=== PATIENT | female | born 1990 | race African-American/Black ===

== ENCOUNTER 2018-02-23 20:07 | Observation (INO) ==
[2018-02-23 20:46] VITALS: O2SAT 100
--- NOTE | 2018-02-23 21:04 | ED ---
HPI General Chief Complaint: Chest Pain Stated Complaint: Sob Time Seen by Provider: 02/23/18 20:52 Source: patient History of Present Illness HPI narrative: The patient is a 27 year old female who presents to the [facility] emergency department with a history of intermittent chest pain that began in January. She has a lump that is painful in the left breast that she noticed in January. She has never been evaluated for this previously. The pain is sharp and made worse with lying on it, pressing on it, or taking a deep breath. She has a history of anemia with chronic shortness breath, however her shortness of breath has been worse over the last 2 weeks. She had a fever on Thursday a week ago. Her tmax was 103. She has had a dry cough that began 3 weeks ago. She has had a DVT when she was at 20 years of age. She denies any congestion, neck pain, abdominal pain, diarrhea, urinary symptoms, or neurologic symptoms. FH: DVT in materal grandmother. LMP: 01/27/2018. Related Data Home Medications Medication Instructions Recorded Confirmed cyanocobalamin (vitamin B-12) 2,500 mcg PO DAILY 02/23/18 02/23/18 [Vitamin B-12] iron 150 mg PO DAILY 02/23/18 02/23/18 Allergies Allergy/AdvReac Type Severity Reaction Status Date / Time diphenhydramine Allergy Hives Verified 02/23/18 20:44 [From Latisha] Review of Systems ROS: all other systems reviewed are negative PMFSH Medical History Medical History DVT (deep vein thrombosis) in (Acute) Patient denies medical problems (Acute) Iron deficiency anemia (Acute) Pernicious anemia (Acute) Surgical History Surgical History No history of previous surgery (Acute) Social History Social History Substance History: No History of Abuse Second Hand Smoke Exposure: No Smoking Status: Never smoker How Often Do You Have a Drink Containing Alcohol: Never Recent Travel in [facility] within the Last 8 Weeks: No Recent Out of Country Travel within the Last 8 Weeks: No Exam Const General: cooperative, no acute distress and well developed Nutritional Appearance: well nourished Orientation: alert, awake and oriented x3 HENMT Head: normocephalic and atraumatic Nose: no nasal discharge and no epistaxis Mouth: moist mucous membranes Throat: posterior oropharynx normal and uvula midline Eyes Sclera: normal sclerae Pupils: PERRL Neck Neck: no meningeal signs, trachea midline and no JVD Chest Chest: normal inspection of the chest and tenderness (On palpation of the left breast, the patient is exquisitely tender. There is no erythema. There is no nipple discharge. The patient has no focal masses. The patient's right breast is unremarkable. No skin changes overlying the left breast.) Breast inspection: normal inspection of the axillae Breast palpation: no axillary lymphadenopathy Resp Effort & Inspection: no use of accessory muscles Auscultation: clear to auscultation bilaterally Cardio Rate: regular rate Rhythm: regular rhythm Heart Sounds: no gallops, no murmurs and no rubs GI Inspection: non-distended Palpation: soft, no hepatosplenomegaly and nontender Skin General: dry skin (warm) Neuro General: alert and awake Cranial Nerves: other Speech: speech normal Motor: no movement abnormalities noted Extrem General: normal to inspection, no clubbing, no cyanosis and no edema Psych Mood: congruent mood Affect: normal affect Judgment: judgment good Course Initial Documented Vital Signs Temperature 98.9 F 02/23/18 20:44 Pulse Rate 104 H 02/23/18 20:44 Respiratory Rate 16 02/23/18 20:44 Blood Pressure 151/74 H 02/23/18 20:44 Pulse Oximetry 100 02/23/18 20:44 Last Documented Vital Signs Temperature 98.4 F 02/24/18 04:00 Pulse Rate 76 02/24/18 04:00 Respiratory Rate 18 02/24/18 04:00 Blood Pressure 97/62 L 02/24/18 04:00 Pulse Oximetry 100 02/24/18 04:00 Clinical Decision Support Wells' Criteria Questions Clinical Signs and Symptoms of DVT: No PE is primary diagnosis or equally likely: Yes Heart Rate greater than 100: Yes Immobilized at least 3 days or Surgery in previous 4 weeks: No Previous, objectively diagnosed PE or DVT: Yes Hemoptysis: No Malignancy with treatment within 6 months or palliative: No Wells' Criteria Score Wells' Criteria Score: 6.0 Medical Decision Making MDM Narrative Medical decision making narrative: During the course of the patient's emergency department visit, the patient's history, examination, and differential diagnosis were reviewed with the patient. The patient was placed on a awake overnight monitor with oximetry and frequent blood pressure monitoring. The patient had IV access obtained and blood work sent for analysis. A diagnostic evaluation was started regarding the patient's chest pain. A bedside test was negative. Diagnostic studies revealed a CBC that is within normal limits, PT PTT within normal limits, d-dimer elevated at 1.94, chemistry is remarkable for potassium of 3.4, creatinine 1.07, GFR 74, cardiac enzymes within normal limits, BMP within normal limits, C-reactive protein less than 0.29, lipase within normal limits. The patient had a chest x-ray done that showed no acute abnormality, CTA to rule out PE showed no evidence of PE. Given the patient's reports of chest pain and shortness of breath with exertion. The patient will be, the patient will be admitted to the chest pain center for rule out serial cardiac enzyme protocol followed by consideration of stress testing. The patient's results were discussed with the patient, including the plan of care. I explained that further testing and/ or monitoring is indicated based on the patient's history, examination, and/ or laboratory findings. Therefore, I recommended admission for additional evaluation. The patient expressed understanding and was agreeable with this plan. The patient was admitted to the hospital in stable condition and sent to a bed under the care of the [facility]. Medical Screen Exam Complete: Yes Emergency Medical Condition: Yes Differential Diagnosis Differential Diagnosis: Pulmonary embolism, versus acute coronary syndrome, versus anxiety disorder, versus acid reflux, versus pneumonia, versus pleurisy, versus chest wall pain Medical Records Medical records reviewed: Yes I reviewed the patient's medical records. Lab Data Lab results reviewed: Yes I reviewed the patient's lab results. Result diagrams: 02/23/18 21:15 02/23/18 21:15 POC Results POC Urine Results Negative Lab Results 02/23/18 02/23/18 02/23/18 Range/Units 21:15 21:15 21:15 WBC 10.0 (4.0-11.0) th/mm3 RBC 4.13 (4.00-5.30) mil/mm3 Hgb 12.4 (11.6-15.3) gm/dL Hct 37.3 (35.0-46.0) % MCV 90.5 (80.0-100.0) fL MCH 29.9 (27.0-34.0) pg MCHC 33.1 (32.0-36.0) % RDW 14.9 (11.6-17.2) % Plt Count 238 (150-450) th/mm3 MPV 9.5 (7.0-11.0) fL Neut % (Auto) 68.8 (16.0-70.0) % Lymph % (Auto) 21.2 (9.0-44.0) % [place] % (Auto) 8.0 (0.0-8.0) % Eos % (Auto) 1.4 (0.0-4.0) % Baso % (Auto) 0.6 (0.0-2.0) % Neut # (Auto) 6.9 (1.8-7.7) th/mm3 Lymph # (Auto) 2.1 (1.0-4.8) th/mm3 [place] # (Auto) 0.8 (0.0-0.9) th/mm3 Eos # (Auto) 0.1 (0.0-0.4) th/mm3 Baso # (Auto) 0.1 (0.0-0.2) th/mm3 WBC Differential . Differential Comment Auto diff final PT 10.6 (9.8-11.6) sec INR 1.0 Ratio APTT 29.5 (24.3-30.1) sec D-Dimer Quant (PE/DVT) 1.94 H (0.00-0.50) mg/L FEU Sodium 137 (136-145) meq/L Potassium 3.4 L (3.5-5.1) meq/L Chloride 105 (98-107) meq/L Carbon Dioxide 22.0 (21.0-32.0) meq/L Anion Gap 10 (5-15) meq/L BUN 8 (7-18) mg/dL Creatinine 1.07 H (0.50-1.00) mg/dL Estimated GFR 74 L (>89) mL/min Random Glucose 79 (74-106) mg/dL Lactic Acid (0.4-2.0) mmol/L Calcium 9.0 (8.5-10.1) mg/dL Magnesium 2.1 (1.5-2.5) mg/dL Total Bilirubin 0.7 (0.2-1.0) mg/dL AST 16 (15-37) U/L ALT 21 (10-53) U/L Alkaline Phosphatase 70 (45-117) U/L Total Creatine Kinase 109 (26-192) U/L CK-MB (CK-2) Less than 1.0 (0.5-3.6) ng/mL Troponin I Less than 0.02 L (0.02-0.05) ng/mL C-Reactive Protein (0.00-0.30) mg/dL B-Natriuretic Peptide (0-100) pg/mL Total Protein 8.6 H (6.4-8.2) g/dL Albumin 4.1 (3.4-5.0) g/dL Lipase 192 (73-393) U/L 02/23/18 02/23/18 02/23/18 Range/Units 21:15 21:15 21:15 WBC (4.0-11.0) th/mm3 RBC (4.00-5.30) mil/mm3 Hgb (11.6-15.3) gm/dL Hct (35.0-46.0) % MCV (80.0-100.0) fL MCH (27.0-34.0) pg MCHC (32.0-36.0) % RDW (11.6-17.2) % Plt Count (150-450) th/mm3 MPV (7.0-11.0) fL Neut % (Auto) (16.0-70.0) % Lymph % (Auto) (9.0-44.0) % [place] % (Auto) (0.0-8.0) % Eos % (Auto) (0.0-4.0) % Baso % (Auto) (0.0-2.0) % Neut # (Auto) (1.8-7.7) th/mm3 Lymph # (Auto) (1.0-4.8) th/mm3 [place] # (Auto) (0.0-0.9) th/mm3 Eos # (Auto) (0.0-0.4) th/mm3 Baso # (Auto) (0.0-0.2) th/mm3 WBC Differential Differential Comment PT (9.8-11.6) sec INR Ratio APTT (24.3-30.1) sec D-Dimer Quant (PE/DVT) (0.00-0.50) mg/L FEU Sodium (136-145) meq/L Potassium (3.5-5.1) meq/L Chloride (98-107) meq/L Carbon Dioxide (21.0-32.0) meq/L Anion Gap (5-15) meq/L BUN (7-18) mg/dL Creatinine (0.50-1.00) mg/dL Estimated GFR (>89) mL/min Random Glucose (74-106) mg/dL Lactic Acid 1.4 (0.4-2.0) mmol/L Calcium (8.5-10.1) mg/dL Magnesium (1.5-2.5) mg/dL Total Bilirubin (0.2-1.0) mg/dL AST (15-37) U/L ALT (10-53) U/L Alkaline Phosphatase (45-117) U/L Total Creatine Kinase (26-192) U/L CK-MB (CK-2) (0.5-3.6) ng/mL Troponin I (0.02-0.05) ng/mL C-Reactive Protein Less than 0.29 (0.00-0.30) mg/dL B-Natriuretic Peptide 3 (0-100) pg/mL Total Protein (6.4-8.2) g/dL Albumin (3.4-5.0) g/dL Lipase (73-393) U/L 02/24/18 02/24/18 Range/Units 00:21 03:38 WBC (4.0-11.0) th/mm3 RBC (4.00-5.30) mil/mm3 Hgb (11.6-15.3) gm/dL Hct (35.0-46.0) % MCV (80.0-100.0) fL MCH (27.0-34.0) pg MCHC (32.0-36.0) % RDW (11.6-17.2) % Plt Count (150-450) th/mm3 MPV (7.0-11.0) fL Neut % (Auto) (16.0-70.0) % Lymph % (Auto) (9.0-44.0) % [place] % (Auto) (0.0-8.0) % Eos % (Auto) (0.0-4.0) % Baso % (Auto) (0.0-2.0) % Neut # (Auto) (1.8-7.7) th/mm3 Lymph # (Auto) (1.0-4.8) th/mm3 [place] # (Auto) (0.0-0.9) th/mm3 Eos # (Auto) (0.0-0.4) th/mm3 Baso # (Auto) (0.0-0.2) th/mm3 WBC Differential Differential Comment PT (9.8-11.6) sec INR Ratio APTT (24.3-30.1) sec D-Dimer Quant (PE/DVT) (0.00-0.50) mg/L FEU Sodium (136-145) meq/L Potassium (3.5-5.1) meq/L Chloride (98-107) meq/L Carbon Dioxide (21.0-32.0) meq/L Anion Gap (5-15) meq/L BUN (7-18) mg/dL Creatinine (0.50-1.00) mg/dL Estimated GFR (>89) mL/min Random Glucose (74-106) mg/dL Lactic Acid (0.4-2.0) mmol/L Calcium (8.5-10.1) mg/dL Magnesium (1.5-2.5) mg/dL Total Bilirubin (0.2-1.0) mg/dL AST (15-37) U/L ALT (10-53) U/L Alkaline Phosphatase (45-117) U/L Total Creatine Kinase 94 97 (26-192) U/L CK-MB (CK-2) (0.5-3.6) ng/mL Troponin I Less than 0.02 L Less than 0.02 L (0.02-0.05) ng/mL C-Reactive Protein (0.00-0.30) mg/dL B-Natriuretic Peptide (0-100) pg/mL Total Protein (6.4-8.2) g/dL Albumin (3.4-5.0) g/dL Lipase (73-393) U/L Imaging Data Radiologist's impression: Chest X-Ray 02/23/18 21:05 CONCLUSION: No active disease. Chest CTA 02/23/18 21:15 CONCLUSION: 1. Negative for pulmonary embolus. Lungs are clear. ECG Data Attestation: I personally reviewed and interpreted this ECG as follows: Interpretation: The patient had an EKG done on arrival that shows a sinus rhythm heart rate of 89, QRS duration is 88 ms, QTC [address] segment elevation. T waves are inverted in V1. Discharge Plan Discharge Disposition Patient Disposition: 30 Still Patient Discharge Details Diagnosis: Chest pain, rule out acute myocardial infarction Physicians Team ED Provider: Sylvia Rogers Primary Care Provider: Primary Care Meera Christianson Attending Provider: Saranya Harrington Discharge Interventions Interventions: ED Discharge Assessment Last Done: 02/24/18 00:44 Vital Signs Last Done: 02/23/18 20:45 Status ED Status: Left Department Discharge Information Discharge Date/Time: 02/24/18 00:46
[2018-02-23 21:38] LABS: Baso # (Auto) 0.1 th/mm3 (0.0-0.2); Baso % (Auto) 0.6 % (0.0-2.0); Eos # (Auto) 0.1 th/mm3 (0.0-0.4); Eos % (Auto) 1.4 % (0.0-4.0); Hematocrit 37.3 % (35.0-46.0); Hemoglobin 12.4 gm/dL (11.6-15.3); Lymph # (Auto) 2.1 th/mm3 (1.0-4.8); Lymph % (Auto) 21.2 % (9.0-44.0); Mean Corpuscular HGB Conc 33.1 % (32.0-36.0); Mean Corpuscular Hemoglobin 29.9 pg (27.0-34.0); Mean Corpuscular Volume 90.5 fL (80.0-100.0); Mean Platelet Volume 9.5 fL (7.0-11.0); Mono # (Auto) 0.8 th/mm3 (0.0-0.9); Neut # (Auto) 6.9 th/mm3 (1.8-7.7); Neut % (Auto) 68.8 % (16.0-70.0); Platelet Count 238 th/mm3 (150-450); Red Blood Count 4.13 mil/mm3 (4.00-5.30); Red Cell Distribution Width 14.9 % (11.6-17.2)
[2018-02-23 21:52] LABS: D-Dimer 1.94 mg/L FEU (0.00-0.50)
[2018-02-23 21:53] LABS: Activated Partial Thrombo Time 29.5 sec (24.3-30.1); Prothrombin Time 10.6 sec (9.8-11.6)
[2018-02-23 22:05] LABS: Alanine Aminotransferase 21 U/L (10-53); Albumin 4.1 g/dL (3.4-5.0); Anion Gap 10 meq/L (5-15); Aspartate Aminotransferase 16 U/L (15-37); Blood Urea Nitrogen 8 mg/dL (7-18); Chloride 105 meq/L (98-107); Glomerular Filtration Rate 74 mL/min (>89); Glucose,Random 79 mg/dL (74-106); Lipase 192 U/L (73-393); Magnesium 2.1 mg/dL (1.5-2.5); Potassium 3.4 meq/L (3.5-5.1); Sodium 137 meq/L (136-145)
--- NOTE | 2018-02-23 22:06 | XR ---
EXAM DATE: 02/23/2018 10:00 PM EDT AGE/SEX: 27 years / Female INDICATIONS: Patient states that she has shortness of breath for 2 weeks which is increasing. CLINICAL DATA: This is the patient's initial encounter. Patient reports that signs and symptoms have been present for 2 weeks and indicates a pain score of 2/10. MEDICAL/SURGICAL HISTORY: None. None. COMPARISON: No prior exams available for comparison. FINDINGS: A single AP view of the chest demonstrates the lungs to be symmetrically aerated without evidence of mass, infiltrate or effusion. The cardiomediastinal contours are unremarkable. Osseous structures a re intact. CONCLUSION: No active disease. Electronically signed by: Steve Meyer MD 02/23/2018 10:05 PM EDT
[2018-02-23 22:12] LABS: Alkaline Phosphatase 70 U/L (45-117); Creatine Kinase 109 U/L (26-192); Total Protein 8.6 g/dL (6.4-8.2)
--- NOTE | 2018-02-23 22:35 | CT ---
EXAM DATE: 02/23/2018 10:31 PM EDT AGE/SEX: 27 years / Female INDICATIONS: Shortness of breath. Chest pain. CLINICAL DATA: This is the patient's initial encounter. Patient reports that signs and symptoms have been present for 1 day and indicates a pain score of 3/10. MEDICAL/SURGICAL HISTORY: None. None. RADIATION DOSE: 6.66 CTDI (mGy) COMPARISON: No prior exams available for comparison. TECHNIQUE: Volumetric scanning was performed using a multi-row detector CT scanner during bolus infu katherine of 75 ml Omnipaque 350 (iohexol) nonionic water-soluble contrast as a single exam dose. The avelina a was post processed with a variety of visualization algorithms including full volume maximum intensi ty projection and sliding thin slab reformation. Using automated exposure control and adjustment of the mA and/or kV according to patient size, radiation dose was kept as low as reasonably achievable t o obtain optimal diagnostic quality images. DICOM format image data is available electronically for review and comparison. FINDINGS: No filling defects to suggest pulmonary embolic disease. Lungs are clear. No pleural or pericardial e ffusion. No adenopathy. No acute bony abnormalities. CONCLUSION: 1. Negative for pulmonary embolus. Lungs are clear. Electronically signed by: Steve Meyer MD 02/23/2018 10:34 PM EDT
[2018-02-24] MEDS ORDERED: Acetaminophen 500 MG Tablet PO PRN (00:05)
[2018-02-24 01:00] LABS: Creatine Kinase 94 U/L (26-192)
[2018-02-24 04:03] VITALS: RESP 18
[2018-02-24 04:30] LABS: Creatine Kinase 97 U/L (26-192)
[2018-02-24 08:31] VITALS: BP 110/67; TEMP 98.8
--- NOTE | 2018-02-24 08:31 | P.HPCA ---
History of Present Illness Primary Care Physician: No Primary Care Physician Chief Complaint: Chest pain History of Present Illness: 27 year old female with history of anemia presents to ER for further evaluation of nonexertional chest tightness. Onset 2 weeks. Characterizes chest tightness with associated symptoms of dyspnea and intermittent sharp pains during inhalation. Yesterday's episode more severe and lingered most of the day. No recent illness, fever, or cough. Reports fever Thursday of 103, relieve with taking a cool shower. Recently moved to [facility] and does not have a local PCP. No history of asthma. Reports having 2 different type of anemia, uncertain of which types. No diabetes, hypertension, or hyperlipidemia. Past cardiac testing None Social history Lifelong non-smoker. Denies any alcohol or recreational drug use. Works in IT. Endorses an active lifestyle running and/or walking daily Family history Noncontributory for early onset cardiovascular disease. - Diagnosis (1) Chest pain, atypical Review of Systems All other systems reviewed negative except as stated in HPI PMFSH - History History Provided By: Patient - Medical History Medical History: Medical History (Last Reviewed 02/24/18 @ 10:05 by LAYNE Martin) DVT (deep vein thrombosis) in Iron deficiency anemia Pernicious anemia - Surgical History Surgical History: Surgical History (Last Reviewed 02/24/18 @ 10:05 by LAYNE Martin) No history of previous surgery - Social History I have reviewed the patient's Social History: Yes - Tobacco History Second Hand Smoke Exposure: No Smoking Status: Never smoker - Alcohol History How Often Do You Have a Drink Containing Alcohol: Never - Substance Use History Substance History: No History of Abuse - Travel History Recent Travel in the [facility] Within the Last 8 Weeks: No Recent Travel Out of the Country Within the Last 8 Weeks: No - Immunization History Tetanus Immunization: >5 Years Hx Influenza Vaccine This Season: No Medications and Allergies Active Medications: Active Medications Acetaminophen (Tylenol) 500 mg PO Q4H PRN PRN Reason: HEADACHE Sodium Chloride (Ns Flush) 2 ml IV.FLUSH UNSCH PRN PRN Reason: FLUSH AFTER USING IV ACCESS Sodium Chloride (Ns Flush) 2 ml IV.FLUSH BID INDIGO Sodium Chloride (Ns Flush) 2 ml IV.FLUSH PRN PRN PRN Reason: FLUSH AFTER USING IV ACCESS Allergies Allergy/AdvReac Type Severity Reaction Status Date / Time diphenhydramine Allergy Hives Verified 02/23/18 20:44 [facility] Home Medications Medication Instructions Recorded Confirmed Type cyanocobalamin (vitamin B-12) 2,500 mcg PO DAILY 02/23/18 02/23/18 History [Vitamin B-12] iron 150 mg PO DAILY 02/23/18 02/23/18 History Exam Vital signs: Vital Signs 02/23/18 20:44 02/23/18 20:45 02/23/18 21:29 Temperature 98.9 F 98.9 F Pulse Rate 104 H 83 89 Respiratory Rate 16 16 19 Blood Pressure 151/74 H 112/59 L 137/67 Pulse Oximetry 100 100 100 02/23/18 22:40 02/24/18 00:17 02/24/18 00:48 Temperature 98.8 F Pulse Rate 89 75 76 Respiratory Rate 16 Blood Pressure 123/78 Pulse Oximetry 100 02/24/18 04:00 02/24/18 08:27 Temperature 98.4 F 98.8 F Pulse Rate 76 73 Respiratory Rate 18 18 Blood Pressure 97/62 L 110/67 Pulse Oximetry 100 100 Intake & Output 02/23/18 02/24/18 02/24/18 18:59 06:59 18:59 Weight 65.77 kg Other: Weight On Admission 65.771 kg Narrative: GENERAL: Alert WN, WD, NAD, pleasant, -Greek female HEAD: NC, AT EYES: Sclera clear, conjunctiva without injection, pupils equal and round ENT: Mucous membranes pink and moist NECK: Supple, no masses, trachea midline, thyroid palpable, no nodules CV: RRR, without murmur or rub, S1-S2. RESP: Clear lungs throughout bilateral, no crackles, wheeze, rhonchi, symmetrical chest rise, nonlabored, able to speak in full sentences ABD: Soft, NT, ND, no masses, positive bowel tones EXT: Pulses +2x4, no dependent edema MS: Normal tone x4 extremities, nontender, no obvious deformities, full range of motion NEURO: CN II through CN XII grossly intact, motor strength 5/5, gait WNL PSYCH: A+O x3, pleasant affect, appropriate speech, mood, insight and judgment SKIN: Normal turgor, normal texture, no lesions, no rashes, even hair distribution Results 02/23/18 21:15 02/23/18 21:15 Cardiac Enzymes 02/23/18 02/23/18 02/24/18 Range/Units 21:15 21:15 00:21 AST 16 (15-37) U/L CK-MB (CK-2) Less than 1.0 (0.5-3.6) ng/mL Troponin I Less than 0.02 L Less than 0.02 L (0.02-0.05) ng/mL B-Natriuretic Peptide 3 (0-100) pg/mL 02/24/18 Range/Units 03:38 AST (15-37) U/L CK-MB (CK-2) (0.5-3.6) ng/mL Troponin I Less than 0.02 L (0.02-0.05) ng/mL B-Natriuretic Peptide (0-100) pg/mL Coagulation 02/23/18 02/23/18 Range/Units 21:15 21:15 PT 10.6 (9.8-11.6) sec APTT 29.5 (24.3-30.1) sec B-Natriuretic Peptide 3 (0-100) pg/mL CBC 02/23/18 Range/Units 21:15 WBC 10.0 (4.0-11.0) th/mm3 RBC 4.13 (4.00-5.30) mil/mm3 Hgb 12.4 (11.6-15.3) gm/dL Hct 37.3 (35.0-46.0) % Plt Count 238 (150-450) th/mm3 Neut # (Auto) 6.9 (1.8-7.7) th/mm3 Lymph # (Auto) 2.1 (1.0-4.8) th/mm3 [place] # (Auto) 0.8 (0.0-0.9) th/mm3 Eos # (Auto) 0.1 (0.0-0.4) th/mm3 Baso # (Auto) 0.1 (0.0-0.2) th/mm3 Comprehensive Metabolic Panel 02/23/18 Range/Units 21:15 Sodium 137 (136-145) meq/L Potassium 3.4 L (3.5-5.1) meq/L Chloride 105 (98-107) meq/L Carbon Dioxide 22.0 (21.0-32.0) meq/L BUN 8 (7-18) mg/dL Creatinine 1.07 H (0.50-1.00) mg/dL Calcium 9.0 (8.5-10.1) mg/dL AST 16 (15-37) U/L ALT 21 (10-53) U/L Alkaline Phosphatase 70 (45-117) U/L Total Protein 8.6 H (6.4-8.2) g/dL Albumin 4.1 (3.4-5.0) g/dL Intake and Output 02/23/18 02/24/18 02/24/18 22:59 06:59 14:59 Other: Weight 65.771 kg 65.77 kg Weight On Admission 65.771 kg EKG interpretations - EKG EKG results cardiology: sinus rhythm, normal axis, normal QRS, normal ST/T Caprini VTE Risk Assessment Caprini VTE Risk Assessment: No/Low Risk (score <= 1) Caprini Risk Assessment Model: Point Value = 1 Point Value = 2 Point Value = 3 Point Value = 5 Age 41-60 Minor surgery BMI > 25 kg/m2 Swollen legs Varicose veins or History of unexplained or recurrent spontaneous Oral contraceptives or hormone replacement Sepsis (< 1 month) Serious lung disease, including pneumonia (< 1 month) Abnormal pulmonary function Acute myocardial infarction Congestive heart failure (< 1 month) History of inflammatory bowel disease Medical patient at bed rest Age 61-74 Arthroscopic surgery Major open surgery (> 45 min) Laparoscopic surgery (> 45 min) Malignancy Confined to bed (> 72 hours) Immobilizing plaster cast Central venous access Age >= 75 History of VTE Family history of VTE Factor V Leiden Prothrombin [id number] Lupus anticoagulant Anticardiolipin antibodies Elevated serum homocysteine Heparin-induced thrombocytopenia Other congenital or acquired thrombophilia Stroke (< 1 month) Elective arthroplasty Hip, pelvis, or leg fracture Acute spinal cord injury (< 1 month) Prophylaxis Regimen: Total Risk Factor Score Risk Level Prophylaxis Regimen 0-1 Low Early ambulation 2 Moderate Order ONE of the following: *Sequential Compression Device (SCD) *Heparin 5000 units SQ BID 3-4 Higher Order ONE of the following medications: *Heparin 5000 units SQ TID *Enoxaparin/Lovenox 40 mg SQ daily (WT < 150 kg, CrCl > 30 mL/min) *Enoxaparin/Lovenox 30 mg SQ daily (WT < 150 kg, CrCl > 10-29 mL/min) *Enoxaparin/Lovenox 30 mg SQ BID (WT < 150 kg, CrCl > 30 mL/min) AND/OR *Sequential Compression Device (SCD) 5 or more Highest Order ONE of the following medications: *Heparin 5000 units SQ TID (Preferred with Epidurals) *Enoxaparin/Lovenox 40 mg SQ daily (WT < 150 kg, CrCl > 30 mL/min) *Enoxaparin/Lovenox 30 mg SQ daily (WT < 150 kg, CrCl > 10-29 mL/min) *Enoxaparin/Lovenox 30 mg SQ BID (WT < 150 kg, CrCl > 30 mL/min) AND *Sequential Compression Device (SCD) Assessment and Plan - Assessment (1) Chest pain, atypical Code(s): R07.89 - Other chest pain Status: Acute Plan: Admitted to chest pain center. ACS ruled out with 3 sets of EKGs and cardiac enzymes. Seen evaluated by Dr. Jeffrey Freitas. Discomfort atypical for cardiac etiology. Add JULIUS and sed rate to specimen in lab. Continue to exercise cardiac testing later this morning. Instructed to establish with a local PCP. Discussed likely JULIUS will be pending upon discharge to request PCP to obtain. 1040-Upon further exam and discussion, patient endorses chronic fatigue. Initially contributed fatigue to known anemia. When questioned about any known thyroid issues, states her PCP in [place] recommended a thyroidectomy due to hyperthyroidism. States she was frightened of the surgery and declined. Off thyroid medications for "awhile." Discussed in length importance of normal thyroid levels and follow up which will likely improve her fatigue. Add TSH. Encouraged her to discuss alternative options for thyroid removal with PCP. H&P: Quality - VTE Deep Vein Thrombosis/Pulmonary Embolism Present on Admission: No
[2018-02-24 10:46] VITALS: PULSE 64
--- NOTE | 2018-02-24 14:15 | ECG ---
Date Performed: 02/24/2018 Time Performed: 03:36:45 PTAGE: 27 years EKG: Sinus rhythm NORMAL ECG NO PREVIOUS TRACING DOCTOR: Jeffrey Freitas Interpretating Date/Time 02/24/2018 14:14:24
--- NOTE | 2018-02-24 14:16 | ECG ---
Date Performed: 02/23/2018 Time Performed: 22:40:08 PTAGE: 27 years EKG: Sinus rhythm NORMAL ECG NO PREVIOUS TRACING DOCTOR: Jeffrey Freitas Interpretating Date/Time 02/24/2018 14:15:45
--- NOTE | 2018-02-24 14:16 | ECG ---
Date Performed: 02/24/2018 Time Performed: 00:17:06 PTAGE: 27 years EKG: Sinus rhythm NORMAL ECG PREVIOUS TRACING : 02/23/2018 22.40 Since previous tracing, no significant change noted DOCTOR: Jeffrey Freitas Interpretating Date/Time 02/24/2018 14:15:39
--- NOTE | 2018-02-24 15:23 | TR ---
Date Performed: 02/24/2018 Time Performed: 10:07:21 DOCTOR: Jeffrey Freitas DRUG LIST: CLINICAL HISTORY: REASON FOR TEST: REASON FOR ENDING: OBSERVATION: CONCLUSION: Jose Raul protocol completed. Stopped sec to exceeding target heart rate and leg fatigue . Maximum DG=709 Max HR Achieved=87.0% Maximum MT=332/78 Total Exercise Time=10:01. Chest tightness u nchanged from start of exam, peak, and during recovery. No ectopy. Upsloping st segments. Normal bp r esponse. Recovery quick and unremarkable. COMMENTS: Patient exercised using the Jose Raul protocol. No electrocardiographic changes were seen to suggest ischemia. Hemodynamic response to exercise was normal. No significant arrhythmia was prese nt.
== END 2018-02-24 11:27 | disposition home or self-care (01) ==
LOC: NEPC 20:07 → NEDA 20:07 → NEPFCDU 02-24 00:44
PROVIDERS: ADMIT Internal Medicine Interventional Cardiology; ATTEND Internal Medicine Interventional Cardiology